=== PATIENT | female | born 1990 ===

== ENCOUNTER 2022-03-09 09:00 | Inpatient (IN) | payer SELFPAY ==
[2022-03-07 12:26] LABS: Mean Corpuscular HGB Conc 32 % (30-34); Mean Corpuscular Volume 88 fl (79-97); Platelet Count 322 K/mm3 (140-440); Red Blood Count 3.85 M/mm3 (3.65-5.03); Red Cell Distribution Width 16.1 % (13.2-15.2)
[2022-03-09] MEDS ORDERED: ceFAZolin/Water 2 GM/20 ML 2 GM/20 ML SYRINGE IV NR (10:00)
[2022-03-09] MEDS ORDERED: BICITRA ORAL LIQD 30ML PO SCH (10:00)
[2022-03-09] MEDS ORDERED: FAMOTIDINE 20 MG/2 ML INJ IV SCH (10:00)
[2022-03-09] MEDS ORDERED: OXYTOCIN DRIP 30 UNITS/500 ML BAG IV SCH ×2 (10:00→14:00)
[2022-03-09] MEDS ORDERED: METOCLOPRAMIDE 10 MG/2 ML INJ IV SCH (10:00)
[2022-03-09 10:28] LABS: Basophils % (Auto) 0.4 % (0.0-1.8); Eosinophils # (Auto) 0.1 K/mm3 (0.0-0.4); Eosinophils % (Auto) 1.1 % (0.0-4.3); Hematocrit 34.2 % (30.3-42.9); Hemoglobin 11.3 gm/dl (10.1-14.3); Lymphocytes # (Auto) 1.6 K/mm3 (1.2-5.4); Lymphocytes % (Auto) 21.8 % (13.4-35.0); Mean Corpuscular HGB Conc 33 % (30-34); Mean Corpuscular Volume 88 fl (79-97); Monocytes # (Auto) 0.6 K/mm3 (0.0-0.8); Monocytes % (Auto) 7.8 % (0.0-7.3); Platelet Count 325 K/mm3 (140-440); Red Blood Count 3.87 M/mm3 (3.65-5.03); Red Cell Distribution Width 16.1 % (13.2-15.2)
[2022-03-09] MEDS: LACTATED RINGERS 1,000 ML IV SCH ×2 (10:32→15:02)
--- NOTE | 2022-03-09 10:41 | History and Physical Report ---
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 Denies any complication with Past History Past Surgical History: section Social history: smoking - Obstetrical History Expected Date of Delivery: 03/08/22 Actual Gestation: 40 Week(s) 1 Day(s) : 2 Para: 1 Hx # Term Pregnancies: 1 Number of Pregnancies: 0 Spontaneous Abortions: 0 Induced : 0 Number of Living Children: 1 Medications and Allergies Allergies Allergy/AdvReac Type Severity Reaction Status Date / Time No Known Allergies Allergy Verified 03/03/22 13:56 Home Medications Medication Instructions Recorded Confirmed Last Taken Type Vit No.130/Iron/Folic 1 each PO DAILY 10/08/15 03/03/22 10/08/15 12:00 History [ Tablet] Active Meds: Active Medications Citric Acid/Sodium Citrate (Bicitra Oral Liqd 30ml) 30 ml PO ONCE@1000 NAN Stop: 03/09/22 17:00 Famotidine (Famotidine 20 Mg/2 Ml Inj) 20 mg IV ONCE@1000 NAN Stop: 03/09/22 14:00 Lactated Ringer's (Lactated Ringers) 1,000 mls @ 2,250 mls/hr IV PREOP NAN Stop: 03/10/22 10:27 Oxytocin/Sodium Chloride (Pitocin/Ns 30 Unit/500ml) 30 units in 500 mls @ 0 mls/hr IV TITR NAN; Protocol Cefazolin Sodium (Ancef/Sterile Water 2 Gm/20 Ml) 2 gm in 20 mls @ 80 mls/hr IV PREOP NR; Protocol Stop: 03/09/22 18:00 Metoclopramide HCl (Metoclopramide 10 Mg/2 Ml Inj) 10 mg IV ONCE@1000 NAN Stop: 03/09/22 17:00 Review of Systems All systems: negative - Vital Signs Vital signs: Vital Signs Temp Pulse Resp BP Pulse Ox 97.5 F L 80 16 109/62 100 03/07/22 12:05 03/07/22 12:05 03/07/22 12:05 03/07/22 12:05 03/07/22 12:05 Temp Pulse Resp BP Pulse Ox 97.5 F L 81 16 116/72 97 03/07/22 12:05 03/09/22 10:27 03/07/22 12:05 03/09/22 09:32 03/09/22 10:27 - Physical Exam Cardiovascular: Regular rate, Normal S1, Normal S2, No murmurs Lungs: Positive: Clear to auscultation Abdomen: Positive: normal appearance Uterus: Positive: enlarged - Obstetrical FHR: category 1 Uterine Contraction Monitor Mode: External Uterine Contraction Pattern: Irregular Results Result Diagrams: 03/09/22 10:05 Abnormal lab results 03/09/22 Range/Units 10:05 RDW 16.1 H (13.2-15.2) % [place] % (Auto) 7.8 H (0.0-7.3) % All other labs normal. Assessment and Plan A IUP @ 40 1/7 weeks Previous Csection x1 P Repeat Csection
[2022-03-09] MEDS ORDERED: ONDANSETRON 4 MG/2 ML INJ ONE (11:21)
[2022-03-09] MEDS ORDERED: PHENYLEPHRINE/NS 1,000 MCG/10 ML SYRINGE (OR USE) IV ONE (11:21)
[2022-03-09] MEDS ORDERED: BUPIVACAINE/PF (0.5%) 5 MG/1 ML 30 ML VIAL INFILTRATI ONE (11:21)
[2022-03-09] MEDS ORDERED: SODIUM CHLORIDE 0.9% 100 ML ONE (11:21)
[2022-03-09] MEDS ORDERED: ePHEDrine SULFATE 50 MG/1 ML INJ ONE ×2 (11:21→12:48)
[2022-03-09] MEDS ORDERED: ceFAZolin/STERILE WATER 2 GM/20 ML SYRINGE IV ONE (11:38)
[2022-03-09] MEDS ORDERED: LACTATED RINGERS 1,000 ML ONE (12:52)
[2022-03-09] MEDS ORDERED: LANOLIN/ZINC/DIMETHICONE (LANSINOH) 7 GM TP PRN (13:45)
[2022-03-09] MEDS ORDERED: NALOXONE 0.4 MG/1 ML INJ IV PRN ×2 (13:45→13:51)
[2022-03-09] MEDS ORDERED: WITCH HAZEL/ GLYCERIN PAD TP PRN (13:45)
[2022-03-09] MEDS ORDERED: PROMETHAZINE 25 MG TAB PO PRN (13:51)
[2022-03-09] MEDS ORDERED: PROMETHAZINE 25 MG RECT SUPP PR PRN (13:51)
[2022-03-09] MEDS ORDERED: ONDANSETRON 4 MG/2 ML INJ IV PRN (13:51)
[2022-03-09] MEDS ORDERED: MORPHINE 4 MG/1 ML INJ IV PRN (13:51)
[2022-03-09] MEDS ORDERED: HYDROmorphone 1 MG/1 ML INJ IV PRN (13:51)
[2022-03-09] MEDS ORDERED: fentaNYL-BUPIV 2 MCG/ML-0.125% 200 MCG/100 ML BAG EPIDURAL SCH (14:00)
--- NOTE | 2022-03-09 14:06 | Anesthesia Day of Surgery ---
Anesthesia Day of Surgery - Day of Surgery Patient Examined: Yes Patient H&P Reviewed: Yes Patient is NPO: Yes Beta Blockers: No Cardiac Clearance: No Pulmonary Clearance: No Napoleon's Test: N/A
--- NOTE | 2022-03-09 14:06 | Procedure Note ---
OB Delivery Note - Delivery Date of Delivery: 03/09/22 Surgeon: MARIA DOLORES BISHOP Estimated blood loss: other (790) - Section Postop diagnosis: same section procedure: repeat low transverse Disposition: PACU Complications: none Narrative: This is a 32-year-old G2, P1 at 40-1/7 weeks who presented to L&D for a repeat . Patient was taken to the operating room. Spinal anesthesia was given. A Rahman catheter was placed. The patient was then prepped and draped in the normal sterile fashion. After ensuring that spinal anesthesia was adequate timeout was done. A Pfannenstiel skin incision was made in the old incision scar and carried down to the underlying layer of fascia. The fascia was incised in the midline. The incision was then extended laterally using the Early scissors. The lower aspect of the incision was grasped with Sandy clamps elevated and the rectus muscle dissected off. Attention was then turned to the superior aspect of the incision.The fascia was grasped with [place] clamps elevated and the rectus muscle dissected off. The muscle was then in the midline as well as the peritoneum.The peritoneum was then stretched manually. The bladder blade was then placed over the bladder. The vesicouterine peritoneum was then dissected off using the Metzenbaum scissors. The bladder blade was then placed over the bladder. A transverse incision was then placed in the lower uterine segment. The bandage scissors was then used to extend the incision. Membranes were ruptured. On entering the uterine cavity the infant was noted to be in transverse presentation. The infant's legs was grasped and extracted from the uterus and the remainder of the body removed from the uterus. The was handed off to the awaiting NICU team. The placenta was removed from the uterus. The uterus was exteriorized. Penningtons were used to grab the uterus. The uterine incision was closed using 1 Vicryl suture in a running locked fashion. The incision was then imbricated with #1 Vicryl suture. Some bleeding points were noted on the incision. 1 Vicryl suture was used to place figures of 8. Excellent hemostasis was noted. Surgicel powder was then placed on the incision. All laps and instruments were removed from the abdomen. The peritoneum was closed using 0 Vicryl suture. The muscle was reapproximated using 0 Vicryl suture. The fascia was then closed using 0 Vicryl suture. The subcutaneous fat was then closed using 0 Vicryl suture. The skin was closed using subcuticular sutures of 4-0 Vicryl. Dermabond was then placed. All labs and instruments were correct x3 this is Dr. Beal end dictation - Infant A at 1 minute: 8 at 5 minutes: 8 Gender: Male (Weight 9lbs 9ozs Transverse presentation)
--- NOTE | 2022-03-09 14:06 | Anesthesia Consultation ---
Anesthesia Consult and Med Hx Date of service: 03/09/22 - Airway Anesthetic Teeth Evaluation: Good ROM Head & Neck: Adequate Mental/Hyoid Distance: Adequate Mallampati Class: Class II Intubation Access Assessment: Probably Good - Pulmonary Exam CTA: Yes - Cardiac Exam Cardiac Exam: RRR - Pre-Operative Health Status ASA Pre-Surgery Classification: ASA2 Proposed Anesthetic Plan: Spinal Nerve Block: Cedrick Tap - Pulmonary Hx Smoking: Yes (Former) Hx Asthma: No Hx Respiratory Symptoms: No SOB: No COPD: No Home Oxygen Therapy: No Hx Pneumonia: No Hx Sleep Apnea: No - Cardiovascular System Hx Hypertension: No Hx Coronary Artery Disease: No Hx Heart Attack/AMI: No Hx Angina: No Hx Percutaneous Transluminal Coronary Angioplasty (PTCA): No Hx Cardia Arrhythmia: No Hx Pacemaker: No Hx Internal Defibrillator: No Hx Valvular Heart Disease: No Hx Heart Murmur: No Hx Peripheral Vascular Disease: No - Central Nervous System Hx Neuromuscular Disorder: No Hx Seizures: No CVA: No Hx Back Pain: No Hx Psychiatric Problems: No - Gastrointestinal Hx Ulcer: No Hx Gastroesophageal Reflux Disease: No - Endocrine Hx Renal Disease: No Hx Hypothyroidism: No Hx Hyperthyroidism: No - Hematic Hx Anemia: Yes Hx Sickle Cell Disease: No - Other Systems Hx Alcohol Use: No Hx Cancer: No Hx Obesity: Yes
--- NOTE | 2022-03-09 14:07 | Progress Note ---
Regional Anesthesia Block - Regional Anesthesia Block Start Time: 13:33 Stop Time: 13:39 Performed By:: LIBIA JOSEPH Procedure: During the pre-op interview the patient agreed to and signed a consent for a TAP block for post surgical pain management. After her C/S was completed a time out was performed prior to the start of the procedure. The Trans Abdominal Plane was identified bilaterally via ultrasound. The skin was prepped bilaterally with chlorhexidine and a 22g stimuplex needle was advanced to the area between the internal oblique muscle and the trans abdominal plane. Marcaine 0.25% 30mlwas injected under ultrasound guidance on the left and right side. Negative aspiration every 5mL, There was no change in the patients heart rate or rhythm and the patient tolerated the procedure well. No apparent complications were observed.
--- NOTE | 2022-03-09 14:08 | Progress Note ---
Spinal Anesthesia Block - Spinal Anesthesia Block Start Time: 11:38 Stop Time: 11:46 Performed by:: LIBIA JOSEPH Procedure: The patient was placed in a sitting position on the OR table and monitors applied. A timeout was performed immediately prior to the start of the procedure. The patient was Prepped and draped in a sterile fashion and the skin was localized with 3 mL 1% lidocaine at L[4]-L[5] interspace. An introducer was placed into the back between L4-L5 and a 25g spinal needle was advanced into the intrathecal space until clear, free flowing CSF was observed. 1.8cc of 0.75% hyperbaric bupivacaine + 0.5mcg Precedex was injected into the intrathecal space and the spinal needle was removed. The patient tolerated the procedure well and there were no immediate complications noted.
[2022-03-09] MEDS: HYDROmorphone 1 MG/1 ML INJ IV PRN ×2 (15:53→20:50)
[2022-03-09] MEDS: IBUPROFEN 600 MG TAB PO PRN (23:21)
[2022-03-10 02:09] LABS: Hematocrit 27.8 % (30.3-42.9); Hemoglobin 9.3 gm/dl (10.1-14.3)
[2022-03-10] MEDS: HYDROmorphone 1 MG/1 ML INJ IV PRN (03:28)
[2022-03-10] MEDS: IBUPROFEN 600 MG TAB PO PRN ×2 (06:28→20:33)
[2022-03-10] MEDS: HYDROcodone/ACETAMINOPHEN 5-325 MG TAB PO PRN ×4 (07:52→20:32)
--- NOTE | 2022-03-10 09:08 | Progress Note ---
Assessment and Plan A: POD # 1 -stable P: Continue post op care Subjective - Subjective Date of service: 03/10/22 Principal diagnosis: POD # 1 -repeat Patient reports: appetite normal : doing well Objective - Vital Signs Latest vital signs: Vital Signs Temp Pulse Resp BP BP Pulse Ox Pulse Ox 03/10/22 07:53 98 03/10/22 06:55 98 03/10/22 06:28 18 98 03/10/22 05:38 98.7 F 77 18 106/63 98 03/10/22 03:55 98 03/10/22 03:28 18 98 03/10/22 01:32 98.1 F 82 18 93/51 98 03/10/22 00:20 98 03/09/22 23:21 18 98 03/09/22 21:20 18 99 03/09/22 20:50 18 100 03/09/22 20:41 97.9 F 82 18 105/60 99 03/09/22 15:53 20 03/09/22 15:25 97.7 F 67 20 113/66 100 100 03/09/22 14:45 64 18 123/72 100 03/09/22 14:30 74 18 130/67 99 03/09/22 14:15 92 H 116/65 100 03/09/22 14:00 63 21 136/66 100 03/09/22 13:55 61 25 H 136/68 100 03/09/22 13:50 67 17 129/71 100 03/09/22 13:44 97.7 F 65 17 127/56 100 03/09/22 11:15 78 111/69 03/09/22 11:12 78 98 03/09/22 11:07 84 99 03/09/22 11:02 78 99 03/09/22 10:59 78 119/69 03/09/22 10:57 79 99 03/09/22 10:52 80 100 03/09/22 10:47 84 99 03/09/22 10:45 78 112/61 03/09/22 10:42 80 97 03/09/22 10:37 74 99 03/09/22 10:32 83 98 03/09/22 10:27 81 97 03/09/22 10:22 79 96 03/09/22 10:17 84 96 03/09/22 10:12 76 99 03/09/22 10:07 90 97 03/09/22 10:02 90 97 03/09/22 09:57 81 96 03/09/22 09:52 80 97 03/09/22 09:47 80 97 03/09/22 09:32 83 116/72 Intake and Output 03/09/22 03/10/22 03/10/22 22:59 06:59 14:59 Intake Total 480 480 Output Total 700 2300 Balance -220 -1820 Intake: Oral 480 360 Intake, Free Water 120 Output: Urine 700 2300 Indwelling 400 700 Indwelling Catheter 300 1100 Void 500 Other: Total, Intake Amount 480 360 Total, Output Amount 300 500 - Exam Breasts: Present: deferred Cardiovascular: Present: Regular rate Lungs: Present: Clear to auscultation Abdomen: Present: soft Vulva: both: normal Uterus: Present: fundal height below umbilicus Deep Tendon Reflex Grade: Normal +2 - Labs Labs: Abnormal lab results 03/09/22 03/10/22 Range/Units 10:05 01:57 Hgb 9.3 L (10.1-14.3) gm/dl Hct 27.8 L D (30.3-42.9) % RDW 16.1 H (13.2-15.2) % [place] % (Auto) 7.8 H (0.0-7.3) %
[2022-03-10] MEDS: FERROUS SULFATE 325 MG TAB PO SCH (12:42)
[2022-03-10] MEDS: PRENATAL VIT27-FE FUMARATE-FOLIC ACID VIT TAB PO SCH (12:43)
[2022-03-10] MEDS ORDERED: MAGNESIUM HYDROXIDE (MOM) ORAL LIQD UDC PO PRN (16:33)
[2022-03-11] MEDS: IBUPROFEN 600 MG TAB PO PRN ×3 (02:22→16:18)
[2022-03-11] MEDS: HYDROcodone/ACETAMINOPHEN 5-325 MG TAB PO PRN (02:22)
[2022-03-11 08:37] VITALS: BP 111/68
[2022-03-11] MEDS: FERROUS SULFATE 325 MG TAB PO SCH (10:05)
[2022-03-11] MEDS: PRENATAL VIT27-FE FUMARATE-FOLIC ACID VIT TAB PO SCH (10:05)
--- NOTE | 2022-03-11 11:05 | Post Anesthesia Evaluation ---
- Post Anesthesia Evaluation Patient Participated: Yes Airway Patent: Yes Stable Respiratory Function: Yes Nausea/Vomiting: No Temp > 96.8F: Yes Pain Manageable: Yes Adequeate Hydration: Yes Anesthesia Complications: No Block Receding Appropriately: Yes Patient on Ventilator: No
--- NOTE | 2022-03-11 14:31 | Progress Note ---
Assessment and Plan A: POD #2 Asymptomatic Anemia P: Follow Routine PostOP Orders Continue FeSO4 as ordered D/C home today per patient request RTO in One Week Subjective - Subjective Date of service: 03/11/22 Principal diagnosis: POD # 1 -repeat Patient reports: appetite normal, voiding normally, pain well controlled, flatus, ambulating normally : doing well, bottle feeding (and ) Objective - Vital Signs Latest vital signs: Vital Signs Temp Pulse Resp BP BP Pulse Ox Pulse Ox 03/11/22 08:15 98 03/11/22 07:25 98.3 F 74 18 111/68 98 03/10/22 23:43 98.9 F 80 20 99/60 100 03/10/22 19:40 99 03/10/22 16:09 98.1 F 84 18 104/69 99 Intake and Output 03/10/22 03/11/22 03/11/22 22:59 06:59 14:59 Intake Total 720 120 Balance 720 120 Intake: Oral 720 120 Other: Total, Intake Amount 240 120 # Voids Void 1 1 - Exam Breasts: Present: normal Cardiovascular: Present: Regular rate Lungs: Present: Clear to auscultation, Normal air movement Abdomen: Present: normal appearance, soft, normal bowel sounds Uterus: Present: normal, firm, fundal height below umbilicus Extremities: Present: normal Incision: Present: normal, dry, intact
--- NOTE | 2022-03-11 14:32 | Discharge Summary ---
Providers - Providers Date of Admission: 03/09/22 09:00 Date of discharge: 03/11/22 Attending physician: MARIA DOLORES BISHOP MD Primary care physician: MARIA DOLORES BISHOP MD Hospitalization Reason for admission: section Delivery: Procedure: repeat low transverse Episiotomy: none Laceration: none Incision: normal, dry, intact Other procedures: none complications: none Discharge diagnosis: IUP at term delivered baby: male Condition at discharge: Good Disposition: 01 HOME / SELF CARE / HOMELESS Plan - Provider Discharge Summary Activity: routine, no sex for 6 weeks, no heavy lifting 4 weeks, no strenuous exercise Diet: routine Instructions: routine Additional instructions: [] Smoking cessation referral if applicable(refer to patient education folder for contact #) [] Refer to [facility] Booklet Call your doctor immediately for: * Fever > 100.5 * Heavy vaginal bleeding ( >1 pad per hour) * Severe persistent headache * Shortness of breath * Reddened, hot, painful area to leg or breast * Drainage or odor from incision. * Keep incision clean and dry at all times and follow doctor's instructions regarding bathing/showering - Follow up plan Follow up: MARIA DOLORES BISHOP MD [Primary Care Provider] - 7 Days
== END 2022-03-11 16:45 | disposition home or self-care (01) | DRG 788 ==
LOC: APU 09:00 → OB 15:23
PROVIDERS: ADMIT Obstetrics & Gynecology; ATTEND Obstetrics & Gynecology
PROC: 10D00Z1 Extraction of Products of Conception, Low, Open Approach (ICD-10-PCS; principal; 2022-03-09)
PROC: 3E0T3BZ Introduction of Anesthetic Agent into Peripheral Nerves and Plexi, Percutaneous Approach (ICD-10-PCS; 2022-03-09)
DX: O34.211 Maternal care for low transverse scar from previous cesarean delivery (principal); Z3A.40 40 weeks gestation of pregnancy; Z37.0 Single live birth; Z20.822 Contact with and (suspected) exposure to COVID-19; O90.81 Anemia of the puerperium
CPT/HCPCS: 36415; 85014; 85018; 85025; 85027; 86592; 86850; 86900; 86901; G0378; J3490; J7121; J0690; J1170; J2370; J2405; J2765; J7120; U0003